=== PATIENT | female | born 1980 | race Caucasian/White ===

== ENCOUNTER 2016-11-10 16:14 | Emergency (ER) | payer SELFPAY ==
--- NOTE | 2016-11-26 08:13 | ER ---
ADMIT: 11/10/2016 RM/LOC: ER [facility] MR#: [id number] [address] [id number] [place] [address] Emergency Room Report SEX: F AGE: 35 : 1980 DATE: 11/10/2016 HISTORY OF PRESENT ILLNESS: Patient is a 35-year-old female, who was passing by, going on her way to [place]. She developed a headache yesterday. She was in [place] at that time and went to the emergency room, where they did give her several medications to include steroids, Valium, Fioricet, and a prescription for Kenyon and Klonopin. She said the headache she has now is a gripping headache, and she is having flashes in front of her eyes. REVIEW OF SYSTEM: Obvious anxiety. PAST MEDICAL HISTORY: She states that she had a baby two years ago and she did have a subarachnoid hemorrhage at that time. She denies any other medical history. She has a previous bleed and she went blank for a while and then got no deficit from that situation. She has had 2 C-sections. She is at this point taking clonazepam and Kenyon. She took a Kenyon this morning at about 9:00. She states nothing has helped her with the headache. She got anxious and came to the ER to get evaluated and was hoping to get a CT scan so we can rule out a bleed. We immediately sent her to the CT scanner, just to make sure things were okay, came back negative for any pathology. PHYSICAL EXAMINATION: VITAL SIGNS: Blood pressure is 131/92 with a heart rate of 112, respirations 18, O2 sats 98%. GENERAL: She is alert and oriented. Extremely anxious. No pharyngeal erythema. She does have almost like a malar rash around her face. NECK: Supple. RESPIRATIONS: No distress. CVS: Tachycardic. She drove herself to the emergency room for evaluation. The family is at the hotel locally. ABDOMEN: Nontender. SKIN: Good color. EXTREMITIES: Well perfused. NEUROLOGIC: Last time she had her last subarachnoid bleed, she had tremendously elevated blood pressure. Today, she is within normal limits. She is oriented, but restless. Cranial nerves II through XII intact. LABORATORY DATA: We did start labs on her, which we were able to start. Her white count normal. Hemoglobin 13.3, hematocrit is 39.3, platelets 326. CT scan was read as negative. The patient wanted reassurance that if she went to [place], she would not have a stroke, I could not do that for her. I mainly told her what the labs were here and what the CT report was and tried to reassure her that if she had any problems on the way, she would have to stop at a hospital to get evaluated. I did attempt to give her some fluids to hydrate her and give her some ADMIT: 11/10/2016 RM/LOC: [facility] MR#: [id number] [address] [place] [id number] [place] [address] Emergency Room Report SEX: F AGE: 35 : 1980 medication to help with the headache, but that really got very complicated as she did not want to take fentanyl to help because her [id number] had some problems with the fentanyl. Then she requested a morphine, but yet wanted to drive to the hotel and did not want to be somnolent, so I kind of spent some time trying to see how we could help her. We did start the IV fluids, finally gave her some Zofran and then after we ordered the morphine, she refused it. She left AMA, and states that she would take her narcotics that she have at home. PLAN: She was advised to hydrate. I gave her a Powerade and advised her that if she needed to come back, feel free to do that. Follow up with the hydration as it is very important. ESCOBAR Magaña / Jony Montez MD / cade JOB #: [id number] CC: Jony Montez MD, Attending Physician Chandler Puentes MD, Family Physician
== END 2016-11-10 18:00 | disposition left against medical advice (07) ==
LOC: ER 16:14
DX: R51 Headache (principal); F41.9 Anxiety disorder, unspecified; Z79.899 Other long term (current) drug therapy; Z53.21 Procedure and treatment not carried out due to patient leaving prior to being seen by health care provider